=== PATIENT | female | born 1985 | race Caucasian/White ===

== ENCOUNTER 2017-04-20 00:04 | Emergency (ER) | payer BC, OTHER ==
[~2017-04-20 00:04] MED LIST: COUM5TAB PO; DARV PO
[2017-04-20 00:05] VITALS: BP 171/89; PULSE 94; RESP 16; TEMP 97.9; O2SAT 99
[2017-04-20] MEDS ORDERED: PLAV75TA29 PO ×2 (00:14)
[2017-04-20] MEDS ORDERED: ENOX150P SQ ×2 (00:14)
[2017-04-20] MEDS ORDERED: PROM25TA10 PO ×2 (00:14)
[2017-04-20] MEDS ORDERED: TIZA4TAB PO ×2 (00:14)
[2017-04-20] MEDS ORDERED: [UNRECOGNIZED DRUG - CODE] ×2 (00:14)
[2017-04-20] MEDS ORDERED: HYDR-2376 PO ×2 (00:14)
[2017-04-20] MEDS ORDERED: IRON1TAB4 ×2 (00:14)
[2017-04-20] MEDS ORDERED: CYAN1TAB24 ×2 (00:14)
--- NOTE | 2017-04-20 01:04 | PD ---
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 The patient developed clots while on estrogen and progesterone therapy, therefore has been on Lovenox during her . She has not been on this for the last couple days because she was told that she needed a D&C which was initially scheduled for tomorrow morning, however was canceled. All of her physicians are in [place]. She denies fevers or chills. Pain is described as cramping/sharp, is moderate, intermittently worse at times. 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 PE) Myocardial Infarction: No Tetanus Vaccination: Unknown Influenza Vaccination: No ?: Not Past Surgical History Coronary Artery Bypass Graft: No Other Surgery: Yes (LT.LE RASTA FILTER PLACED,5X THROMBECTOMY, 2XSTENT LLE ILLIAC) Family History Family Myocardial Infarction: Yes (grandmother) Social History Alcohol Use: No Tobacco Use: No Substance Use: No Allergies-Medications (Allergen,Severity, Reaction): Coded Allergies: azithromycin (Verified Allergy, Severe, Cramping, 04/20/17) ondansetron (Verified Allergy, Severe, Hives, 04/20/17) tramadol (Verified Allergy, Severe, Itching, 04/20/17) hydromorphone (Unverified Adverse Reaction, Severe, NAUSEA,VOMITING, 04/20) Reported Meds & Prescriptions Reported Meds & Active Scripts Active Reported Tizanidine (Tizanidine HCl) 4 Mg Tab 4 Mg PO TID B12 (Cyanocobalamin) 1,000 Mcg Tab Misoprostol 200 Mcg Tablet Hydrocodone-Acetaminophen 7.5-300 Mg Tab 1 Tab PO Q6H PRN Phenergan (Promethazine HCl) 25 Mg Tablet 25 Mg PO Q6H PRN Maxfe 160-1 mg (Iron-FA-Vit W40-Oaahxu-Yra C-D) 160MG-1-60 Tab Plavix (Clopidogrel Bisulfate) 75 Mg Tab 50 Mg PO DAILY Lovenox Inj (Enoxaparin Sodium) 150 Mg/Ml Syr 150 Mg SQ BID Review of Systems Except as stated in HPI: all other systems reviewed are Neg Physical Exam Narrative GENERAL: Well-developed, well-nourished, overweight, comfortable, no apparent distress. SKIN: Focused skin assessment warm/dry. HEAD: Atraumatic. Normocephalic. EYES: Pupils equal and round. No scleral icterus. No injection or drainage. ENT: Mucous membranes pink and moist. CARDIOVASCULAR: Regular rate and rhythm. No murmur appreciated. RESPIRATORY: No accessory muscle use. Clear to auscultation. Breath sounds equal bilaterally. GASTROINTESTINAL: Abdomen soft, nondistended. Mild suprapubic tenderness without peritoneal signs. Normal bowel sounds. TECHNICAL DELIVERY MANAGER: Exam performed in the presence of female nurse. Normal external genitalia. Normal appearing cervix. No vaginal discharge or bleeding. Mild uterine tenderness. No CMT. No adnexal masses or tenderness. MUSCULOSKELETAL: No obvious deformities. No clubbing. No cyanosis. No edema. NEUROLOGICAL: Awake and alert. No obvious cranial nerve deficits. Motor grossly within normal limits. Normal speech. PSYCHIATRIC: Appropriate mood and affect; insight and judgment normal. Data Data Last Documented VS Vital Signs Date Time Temp Pulse Resp B/P (MAP) Pulse Ox O2 Delivery O2 Flow Rate FiO2 04/20/17 00:05 97.9 94 16 171/89 (116) 99 Room Air Orders Orders Complete Blood Count With Diff (04/20/17 00:54) Comprehensive Metabolic Panel (04/20/17 00:54) Urinalysis - C+S If Indicated (04/20/17 00:54) Prothrombin Time / Inr (Pt) (04/20/17 00:54) Act Partial Throm Time (Ptt) (04/20/17 00:54) Us Pelvis Comp W Transvaginal (04/20/17 ) Gc And Chlamydia Pcr (04/20/17 03:19) Wet Prep Profile (04/20/17 03:19) Ketorolac Inj (Toradol Inj) (04/20/17 03:45) Labs Laboratory Tests Test 04/20/17 01:25 04/20/17 01:44 04/20/17 03:35 Urine Color YELLOW Urine Turbidity CLEAR Urine pH 5.5 Urine Specific [place] 1.027 Urine Protein NEG mg/dL Urine Glucose (UA) NEG mg/dL Urine Ketones NEG mg/dL Urine Occult Blood NEG Urine Nitrite NEG Urine Bilirubin NEG Urine Urobilinogen LESS THAN 2.0 MG/DL Urine Leukocyte Esterase NEG Urine RBC LESS THAN 1 /hpf Urine WBC 2 /hpf Urine Squamous Epithelial Cells 1 /hpf Urine Mucus FEW /lpf Microscopic Urinalysis Comment CULT NOT INDICATED White Blood Count 12.5 TH/MM3 Red Blood Count 4.83 MIL/MM3 Hemoglobin 13.8 GM/DL Hematocrit 41.0 % Mean Corpuscular Volume 84.9 FL Mean Corpuscular Hemoglobin 28.5 PG Mean Corpuscular Hemoglobin Concent 33.6 % Red Cell Distribution Width 14.2 % Platelet Count 220 TH/MM3 Mean Platelet Volume 8.5 FL Neutrophils (%) (Auto) 59.7 % Lymphocytes (%) (Auto) 31.9 % Monocytes (%) (Auto) 6.0 % Eosinophils (%) (Auto) 2.1 % Basophils (%) (Auto) 0.3 % Neutrophils # (Auto) 7.5 TH/MM3 Lymphocytes # (Auto) 4.0 TH/MM3 Monocytes # (Auto) 0.7 TH/MM3 Eosinophils # (Auto) 0.3 TH/MM3 Basophils # (Auto) 0.0 TH/MM3 CBC Comment DIFF FINAL Differential Comment Prothrombin Time 10.9 SEC Prothromb Time International Ratio 1.0 RATIO Activated Partial Thromboplast Time 21.7 SEC Blood Urea Nitrogen 13 MG/DL Creatinine 0.80 MG/DL Random Glucose 91 MG/DL Total Protein 7.3 GM/DL Albumin 3.5 GM/DL Calcium Level 9.0 MG/DL Alkaline Phosphatase 69 U/L Aspartate Amino Transf (AST/SGOT) 33 U/L Alanine Aminotransferase (ALT/SGPT) 23 U/L Total Bilirubin 0.4 MG/DL Sodium Level 138 MEQ/L Potassium Level 5.3 MEQ/L Chloride Level 107 MEQ/L Carbon Dioxide Level 24.0 MEQ/L Anion Gap 7 MEQ/L Estimat Glomerular Filtration Rate 84 ML/MIN Clue Cells (Wet Prep) NONE SEEN Vaginal Trichomonas (Wet Prep) NONE SEEN Vaginal Yeast (Wet Prep) NONE SEEN MDM Medical Decision Making Medical Screen Exam Complete: Yes Emergency Medical Condition: Yes Differential Diagnosis Retained products of conception, endometritis, UTI, cystitis, acute intra- abdominal process. Narrative Course Initial vital signs show heart rate 94, blood pressure 171/89, pulse ox 99% on room air, oral temp of 97.9F. CBC: WBC 12.5, hemoglobin 13.8, hematocrit 41, platelets 220. CMP is remarkable for potassium of 5.3 with slight hemolysis noted, otherwise unremarkable. UA shows few mucus, not suggestive of UTI. Wet prep is negative for yeast, negative for clue cells, negative for Trichomonas. Pelvic ultrasound: 1. Area of decreased echogenicity adjacent to the endometrium measures 2.9 x 1.4 x 2.1 cm and could be a leiomyoma. 2. Several nabothian cysts. 3. Small amount of pelvic free fluid. Case discussed with on-call OB hospitalist Dr. Green. Recommends discharge home with doxycycline and pain medication with follow-up with her MENTAL HEALTH PROGRAM MANAGER physician this week. Diagnosis Primary Impression: Pain, pelvic, female Referrals: [facility] 3 days Additional Instructions: Follow-up with your MENTAL HEALTH PROGRAM MANAGER physician this week. Return to the emergency department for worsening symptoms or any other concerns. Scripts Doxycycline Hyclate (Doxycycline Hyclate) 100 Mg Cap 100 MG PO BID for Infection for 7 Days, #14 CAP 0 Refills Prov: Jj Lopez MD 04/20/17 Disposition: 01 DISCHARGE HOME Condition: Stable Jj Lopez MD Apr 20, 2017 01:03
[2017-04-20 02:04] LABS: AUTOMATED NEUTROPHIL # 7.5 TH/MM3 (1.8-7.7); BASOPHIL % 0.3 % (0.0-2.0); EOSINOPHIL # 0.3 TH/MM3 (0-0.4); EOSINOPHIL % 2.1 % (0.0-4.0); HEMOGLOBIN 13.8 GM/DL (11.6-15.3); LYMPH % 31.9 % (9.0-44.0); MEAN CELL VOLUME 84.9 FL (80.0-100.0); MEAN CORPUSCULAR HEMOGLOBIN 28.5 PG (27.0-34.0); MEAN CORPUSCULAR HGB CONC 33.6 % (32.0-36.0); MEAN PLATELET VOLUME 8.5 FL (7.0-11.0); MONOCYTE # 0.7 TH/MM3 (0-0.9); NEUT % 59.7 % (16.0-70.0); PLATELET COUNT 220 TH/MM3 (150-450); RED BLOOD COUNT 4.83 MIL/MM3 (4.00-5.30); RED CELL DISTRIBUTION WIDTH 14.2 % (11.6-17.2); WHITE BLOOD COUNT 12.5 TH/MM3 (4.0-11.0)
[2017-04-20 02:08] LABS: BILIRUBIN, URINE NEG (NEG); BLOOD, URINE NEG (NEG); GLUCOSE,URINE NEG (NEG); KETONE, URINE NEG (NEG); MUCUS URINE FEW /lpf (OCC); NITRITE,URINE NEG (NEG); PH, URINE 5.5 (5.0-8.5); SQUAMOUS EPITHELIAL CELL URINE 1 /hpf (0-5); URINE COLOR YELLOW (YELLW/STRAW); URINE LEUKOCYTE ESTERASE NEG (NEG)
[2017-04-20 02:20] LABS: ALKALINE PHOSPHATASE 69 U/L (45-117); TOTAL BILIRUBIN ADULT 0.4 MG/DL (0.2-1.0); TOTAL PROTEIN 7.3 GM/DL (6.4-8.2)
[2017-04-20 02:22] LABS: ALBUMIN 3.5 GM/DL (3.4-5.0); ALT (GPT) 23 U/L (10-53); AST (GOT) 33 U/L (15-37); BLOOD UREA NITROGEN 13 MG/DL (7-18); CHLORIDE 107 MEQ/L (98-107); GLOMERULAR FILTRATION RATE 84 ML/MIN (>89); GLUCOSE,RANDOM 91 MG/DL (74-106); SODIUM (NA) 138 MEQ/L (136-145)
[2017-04-20 02:24] LABS: PROTHROMBIN TIME - PATIENT 10.9 SEC (9.8-11.6)
--- NOTE | 2017-04-20 03:14 | RADRPT ---
EXAM DATE/TIME: 04/20/2017 01:56 [facility] COMPARISON: No previous studies available for comparison. INDICATIONS : Pelvic bleeding and pain. MEDICAL HISTORY : Deep venous thrombosis. GBS. Bilateral pulmonary embolism. SURGICAL HISTORY : [place] filter placement. Thrombectomy x5. Stent LLE iliac x2. ENCOUNTER: Initial ACUITY: 1 month PAIN SCORE: 6/10 LOCATION: Bilateral pelvis MEASUREMENTS: UTERUS: 9.7 x 6.2 x 5.4 cm ENDOMETRIAL STRIPE: 17 mm RIGHT OVARY: 2.8 x 2.6 x 2.6 cm LEFT OVARY: 2.0 x 1.6 x 3.2 cm FINDINGS: UTERUS: The myometrium has a homogeneous echotexture without mass. The Several nabothian cysts. No intrauteri ne . Hypoechoic area adjacent to the endometrium measures 29 x 14 x 21 mm. RIGHT OVARY: Ovary contains no mass or significant cystic lesion. LEFT OVARY: Ovary contains no mass or significant cystic lesion. MISCELLANEOUS: Small amount of free fluid. CONCLUSION: 1. Area of decreased echogenicity adjacent to the endometrium measures 2.9 x 1.4 x 2.1 cm and could b e a leiomyoma. 2. Several nabothian cysts. 3. Small amount of pelvic free fluid. Jerman Pillai MD on April 20, 2017 at 3:09 Board Certified Radiologist. This report was verified electronically.
[2017-04-20] MEDS ORDERED: KETOROLAC TROMETHAMINE 30 MG/ML (IVP) VIAL IV PUSH ONE ×2 (03:45)
[2017-04-20] MEDS ORDERED: DOXY100C PO ×2 (04:21)
[2017-04-20] MEDS ORDERED: KETOROLAC TROMETHAMINE 60 MG/2 ML (IM) VIAL IM ONE ×2 (04:30)
== END 2017-04-20 04:35 | disposition home or self-care (01) ==
LOC: NEPC 00:04
DX: O90.89 Other complications of the puerperium, not elsewhere classified (principal); R10.2 Pelvic and perineal pain
CPT/HCPCS: 76830; 76856; 80053; 81001; 85025; 85610; 85730; 87210; 87491; 87591; 96372; 99285; J1885